=== PATIENT | male | born 1960 | race Two or more races ===

== ENCOUNTER 2020-07-13 12:45 | Emergency (ER) | payer MEDICAID, OTHER ==
[~2020-07-13] VITALS: Ht 165.1 cm; Wt 68.0 kg
[2020-07-13 13:06] VITALS: BP 171/92
== END 2020-07-13 14:45 | disposition home or self-care (01) ==
LOC: ER 12:45
DX: S39.012A Strain of muscle, fascia and tendon of lower back, initial encounter (principal); V43.92XA Unspecified car occupant injured in collision with other type car in traffic accident, initial encounter; Y93.89 Activity, other specified; Y92.410 Unspecified street and highway as the place of occurrence of the external cause; Y99.8 Other external cause status
CPT/HCPCS: 72100; 72220